=== PATIENT | female | born 1965 | race Caucasian/White ===

== ENCOUNTER → 2016-06-25 | Outpatient (CLI) | payer BC ==
--- NOTE | 2016-06-25 15:30 | MR ---
EXAMINATION TYPE: MR cervical spine wo con DATE OF EXAM: 06/25/2016 3:21 PM COMPARISON: NONE HISTORY: Neck pain TECHNIQUE: Multiplanar, multisequence images of the cervical spine were acquired. C2-C3: No evidence for degenerative disc disease. No disc bulge/herniation or protrusion. No Canal stenosis. Foramina are patent bilaterally. C3-C4: No evidence for degenerative disc disease. No disc bulge/herniation or protrusion. No Canal stenosis. Foramina are patent bilaterally. C4-C5: Mild uncovertebral joint hypertrophy in the left. No disc bulge/herniation or protrusion. No Canal stenosis. Foramina are patent bilaterally. C5-C6: Mild bilateral uncovertebral joint hypertrophy. Broad-based central and left paracentral disc bulge or small protrusion. Mild facet arthropathy in the left seen with mild left-sided foraminal enc roachment. Mild degenerative disc disease. C6-C7: Mild degenerative disc disease. No disc bulge/herniation or protrusion. No Canal stenosis. Foramina are patent bilaterally. C7-T1: No evidence for degenerative disc disease. No disc bulge/herniation or protrusion. No Canal stenosis. Foramina are patent bilaterally. Cervical segments are intact. There is normal alignment. Cervical spinal cord is of normal signal. Craniovertebral junction relationships are within normal limits. IMPRESSION: 1. Broad-based central and left paracentral disc bulging or small protrusion C5-C6 with mild left-nunu ed foraminal encroachment. 2. There is a slight scoliotic curvature of the cervical thoracic spine.
== END | disposition home or self-care (01) ==
LOC: RADMRIMAIN 14:09
PROVIDERS: ATTEND Orthopaedic Surgery
DX: M50.222 Other cervical disc displacement at C5-C6 level (principal); M41.9 Scoliosis, unspecified
CPT/HCPCS: 72141

== ENCOUNTER → 2016-06-25 | Outpatient (CLI) | payer BC ==
--- NOTE | 2016-06-26 09:55 | MM ---
Reason for exam: screening (asymptomatic). Last mammogram was performed 1 year ago. History: Patient is postmenopausal and is nulliparous. Family history of premenopausal breast cancer in paternal grandmother at age 40. Benign core biopsy of the left breast, 1995. Benign excisional biopsy of the left breast, 1995. Taking estrogen for 6 years beginning at age 43. Physical Findings: A clinical breast exam by your physician is recommended on an annual basis and results should be correlated with mammographic findings. MG Screening Mammo w CAD Bilateral CC and MLO view(s) were taken. Prior study comparison: June 11, 2015, bilateral MG 3d diag mammo w/cad [facility]. December 18, 2014, left breast MG diagnostic mammo LT w CAD. The breast tissue is heterogeneously dense. This may lower the sensitivity of mammography. Finding #1: There is a 10 mm mass in the outer quadrant, posterior, central position of the left breast. Finding #2: There are typically benign calcifications in the right breast. ASSESSMENT: Incomplete: need additional imaging evaluation, BI-RAD 0 RECOMMENDATION: Special view mammogram and ultrasound of the left breast. [facility] will attempt to contact patient to return for supplemental views and ultrasound.
== END | disposition home or self-care (01) ==
LOC: RADMAMWWP 13:46
PROVIDERS: ATTEND Obstetrics & Gynecology
DX: Z12.31 Encounter for screening mammogram for malignant neoplasm of breast (principal)

== ENCOUNTER → 2016-07-02 | Outpatient (CLI) | payer BC ==
--- NOTE | 2016-07-02 09:57 | MM ---
Reason for exam: additional evaluation requested from abnormal screening. Last mammogram was performed less than 1 month ago. History: Patient is postmenopausal and is nulliparous. Family history of premenopausal breast cancer in paternal grandmother at age 40. Benign core biopsy of the left breast, 1995. Benign excisional biopsy of the left breast, 1995. Taking estrogen for 6 years beginning at age 43. Physical Findings: Nurse Summary: 1cm nodule in the left breast at 12 o'clock (nurse kp). MG Work Up Mamm w CAD LT CC and MLO view(s) were taken of the left breast. Prior study comparison: June 25, 2016, bilateral MG screening mammo w CAD. June 11, 2015, bilateral MG 3d diag mammo w/cad [facility]. December 18, 2014, left breast MG diagnostic mammo LT w CAD. June 05, 2013, bilateral digital screening mammo w/CAD. May 12, 2012, bilateral digital screening mammo w/CAD. The breast tissue is heterogeneously dense. This may lower the sensitivity of mammography. A 1.1cm circumscribed mostly circumscribed mass seems to drop slightly on the true lateral suggesting lateral position in the lower outer quadrant. These results were verbally communicated with the patient and result sheet given to the patient on 07/02/16. ASSESSMENT: Incomplete: need additional imaging evaluation, BI-RAD 0 RECOMMENDATION: Ultrasound of the left breast.
--- NOTE | 2016-07-02 09:59 | USB ---
Reason for exam: additional evaluation requested from abnormal screening. History: Patient is postmenopausal and is nulliparous. Family history of premenopausal breast cancer in paternal grandmother at age 40. Benign core biopsy of the left breast, 1995. Benign excisional biopsy of the left breast, 1995. Taking estrogen for 6 years beginning at age 43. US Breast Workup LT Left breast ultrasound including all four quadrants, the retroareolar region and axilla demonstrates a 0.86 x 0.32 x 0.41cm mixed lesion at 12 o'clock, a 0.47 x 0.41 x 0.53cm cystic lesion at 3 o'clock, a 0.86 x 0.46 x 0.92cm cystic lesion at 4 o'clock, this may correspond to the mammographic finding for which a 6 month follow up is recommended and a 1.18 x 0.36 x 0.88cm mixed lesion at 11 o'clock. These results were verbally communicated with the patient and result sheet given to the patient on 07/02/16. ASSESSMENT: Probably benign, BI-RAD 3 RECOMMENDATION: Follow-up diagnostic mammogram of the left breast in 6 months.
== END | disposition home or self-care (01) ==
LOC: RADMAMWWP 08:13
PROVIDERS: ATTEND Obstetrics & Gynecology
DX: R92.8 Other abnormal and inconclusive findings on diagnostic imaging of breast (principal)
CPT/HCPCS: 76641; G0206

== ENCOUNTER → 2017-01-04 | Outpatient (CLI) | payer BC ==
--- NOTE | 2017-01-04 11:17 | MM ---
Reason for exam: follow-up at short interval from prior study. Last mammogram was performed 6 months ago. History: Patient is postmenopausal and is nulliparous. Family history of premenopausal breast cancer in paternal grandmother at age 40. Benign core biopsy of the left breast, 1995. Benign excisional biopsy of the left breast, 1995. Taking estrogen for 6 years beginning at age 43. Physical Findings: Nurse did not find any significant physical abnormalities on exam. MG Diagnostic Mammo LT w CAD CC and MLO view(s) were taken of the left breast. Prior study comparison: July 02, 2016, left breast MG work up mamm w CAD LT. June 25, 2016, bilateral MG screening mammo w CAD. The breast tissue is heterogeneously dense. This may lower the sensitivity of mammography. Finding: There are typically benign calcifications in the left breast. No significant changes in finding since July 02, 2016 and June 25, 2016. These results were verbally communicated with the patient and result sheet given to the patient on 01/04/17. ASSESSMENT: Benign, BI-RAD 2 RECOMMENDATION: Return to routine screening mammogram schedule for both breasts. Back on schedule.
== END | disposition home or self-care (01) ==
LOC: RADMAMWWP 07:36
PROVIDERS: ATTEND Obstetrics & Gynecology
DX: R92.8 Other abnormal and inconclusive findings on diagnostic imaging of breast (principal)

== ENCOUNTER → 2017-10-12 | Outpatient (CLI) | payer BC ==
--- NOTE | 2017-10-13 11:13 | MM ---
Reason for exam: screening (asymptomatic). Last mammogram was performed 9 months ago. History: Patient is postmenopausal and is nulliparous. Family history of premenopausal breast cancer in paternal grandmother at age 40. Benign core biopsy of the left breast, 1995. Benign excisional biopsy of the left breast, 1995. Taking estrogen for 6 years beginning at age 43. Physical Findings: A clinical breast exam by your physician is recommended on an annual basis and results should be correlated with mammographic findings. MG 3D Screening Mammo W/Cad Bilateral CC and MLO view(s) were taken. Prior study comparison: January 04, 2017, left breast MG diagnostic mammo LT w CAD. July 02, 2016, left breast MG work up mamm w CAD LT. The breast tissue is heterogeneously dense. This may lower the sensitivity of mammography. Finding: There are typically benign round calcifications in both breasts. There is no discrete abnormality. ASSESSMENT: Benign, BI-RAD 2 RECOMMENDATION: Routine screening mammogram of both breasts in 1 year.
== END ==
LOC: RADMAMWWP 09:08
PROVIDERS: ATTEND Obstetrics & Gynecology
DX: Z12.31 Encounter for screening mammogram for malignant neoplasm of breast (principal)
CPT/HCPCS: 77063; 77067

== ENCOUNTER → 2018-10-20 | Outpatient (CLI) | payer BC ==
--- NOTE | 2018-10-21 08:52 | MM ---
Reason for exam: screening (asymptomatic). Last mammogram was performed 1 year ago. History: Patient is postmenopausal and is nulliparous. Family history of premenopausal breast cancer in paternal grandmother at age 40. Benign core biopsy of the left breast, 1995. Benign excisional biopsy of the left breast, 1995. Took estrogen for 7 years beginning at age 43. Physical Findings: A clinical breast exam by your physician is recommended on an annual basis and results should be correlated with mammographic findings. MG 3D Screening Mammo W/Cad Bilateral CC and MLO view(s) were taken. Prior study comparison: October 12, 2017, bilateral MG 3d screening mammo w/cad. January 04, 2017, left breast MG diagnostic mammo LT w CAD. The breast tissue is heterogeneously dense. This may lower the sensitivity of mammography. There is no discrete abnormality. No significant changes when compared with prior studies. ASSESSMENT: Negative, BI-RAD 1 RECOMMENDATION: Routine screening mammogram of both breasts in 1 year.
== END | disposition home or self-care (01) ==
LOC: RADMAMWWP 11:40
PROVIDERS: ATTEND Obstetrics & Gynecology
DX: Z12.31 Encounter for screening mammogram for malignant neoplasm of breast (principal)
CPT/HCPCS: 77063; 77067

== ENCOUNTER → 2019-12-29 | Outpatient (CLI) | payer BC ==
--- NOTE | 2020-01-01 09:21 | MM ---
Reason for exam: screening (asymptomatic). Last mammogram was performed 1 year and 2 months ago. History: Patient is postmenopausal and is nulliparous. Family history of premenopausal breast cancer in paternal grandmother at age 40. Benign core biopsy of the left breast, 1995. Benign excisional biopsy of the left breast, 1995. Took estrogen for 7 years beginning at age 43. Physical Findings: A clinical breast exam by your physician is recommended on an annual basis and results should be correlated with mammographic findings. MG 3D Screening Mammo W/Cad Bilateral CC and MLO view(s) were taken. Prior study comparison: October 20, 2018, bilateral MG 3d screening mammo w/cad. October 12, 2017, bilateral MG 3d screening mammo w/cad. The breast tissue is heterogeneously dense. This may lower the sensitivity of mammography. There are benign appearing round calcifications in the right breast. There is no discrete abnormality. ASSESSMENT: Benign, BI-RAD 2 RECOMMENDATION: Routine screening mammogram of both breasts in 1 year.
== END | disposition home or self-care (01) ==
LOC: RADMAMWWP 09:35
PROVIDERS: ATTEND Obstetrics & Gynecology
DX: Z12.31 Encounter for screening mammogram for malignant neoplasm of breast (principal)
CPT/HCPCS: 77063; 77067

== ENCOUNTER → 2021-01-24 | Outpatient (CLI) | payer BC ==
--- NOTE | 2021-01-27 09:40 | MM ---
Reason for exam: screening (asymptomatic). Last mammogram was performed 1 year and 1 month ago. History: Patient is postmenopausal and is nulliparous. Family history of premenopausal breast cancer in paternal grandmother at age 40. Benign core biopsy of the left breast, 1995. Benign excisional biopsy of the left breast, 1995. Took estrogen for 7 years beginning at age 43. Physical Findings: A clinical breast exam by your physician is recommended on an annual basis and results should be correlated with mammographic findings. MG 3D Screening Mammo W/Cad Bilateral CC and MLO view(s) were taken. Prior study comparison: December 29, 2019, bilateral MG 3d screening mammo w/cad. October 20, 2018, bilateral MG 3d screening mammo w/cad. The breast tissue is heterogeneously dense. This may lower the sensitivity of mammography. There is no discrete abnormality. No significant changes when compared with prior studies. ASSESSMENT: Benign, BI-RAD 2 RECOMMENDATION: Routine screening mammogram of both breasts in 1 year.
== END | disposition home or self-care (01) ==
LOC: RADMAMWWP 12:33
PROVIDERS: ATTEND Obstetrics & Gynecology
DX: Z12.31 Encounter for screening mammogram for malignant neoplasm of breast (principal); Z78.0 Asymptomatic menopausal state; Z79.818 Long term (current) use of other agents affecting estrogen receptors and estrogen levels; Z80.3 Family history of malignant neoplasm of breast
CPT/HCPCS: 77063; 77067

== ENCOUNTER → 2022-02-27 | Outpatient (CLI) | payer BC ==
--- NOTE | 2022-03-02 10:20 | MM ---
Reason for Exam: Screening (asymptomatic). Last mammogram was performed 1 year(s) and 1 month(s) ago. Patient History: Menarche at age 16. Patient has no children. Left ovary removed at age 43. Right ovary removed at age 43. Hysterectomy at age 43. Postmenopausal. Estrogen for 7 years from age 43 until age 50. 1995, Benign Core Biopsy on the left side. 1995, Benign Excisional Biopsy on the left side. Paternal grandmother had breast cancer, age 40. Risk Values: Savita 5 year model risk: 1.9%. NCI Lifetime model risk: 12.0%. Prior Study Comparison: 10/20/2018 Bilateral Screening Mammogram, [facility]. 12/29/2019 Bilateral Screening Mammogram, [facility]. 01/24/2021 Bilateral Screening Mammogram, [facility]. Tissue Density: The breast tissue is heterogeneously dense. This may lower the sensitivity of mammography. Findings: Analyzed By CAD. Benign-appearing bilateral axillary lymph nodes redemonstrated. There is occasional scattered benign-appearing tiny round calcification throughout the bilateral breasts. There is no suspicious group of microcalcifications or new suspicious mass in either breast. Overall Assessment: Benign, BI-RAD 2 Management: Screening Mammogram of both breasts in 1 year. A clinical breast exam by your physician is recommended on an annual basis and results should be correlated with mammographic findings. Electronically signed and approved by: Robin Oliva M.D.
== END | disposition home or self-care (01) ==
LOC: RADMAMWWP 14:38
PROVIDERS: ATTEND Obstetrics & Gynecology
DX: Z12.31 Encounter for screening mammogram for malignant neoplasm of breast (principal); Z80.3 Family history of malignant neoplasm of breast; Z78.0 Asymptomatic menopausal state
CPT/HCPCS: 77063; 77067

== ENCOUNTER → 2023-03-10 | Outpatient (CLI) | payer BC ==
--- NOTE | 2023-03-11 11:00 | MM ---
Reason for Exam: Screening (asymptomatic). Last mammogram was performed 1 year(s) and 1 month(s) ago. Patient History: Menarche at age 16. Patient has no children. Left ovary removed at age 43. Right ovary removed at age 43. Hysterectomy at age 43. Postmenopausal. Estrogen for 7 years from age 43 until age 50. 1995, Benign Core Biopsy on the left side. 1995, Benign Excisional Biopsy on the left side. Paternal grandmother had breast cancer, age 40. Risk Values: Savita 5 year model risk: 2.0%. NCI Lifetime model risk: 11.7%. Prior Study Comparison: 12/29/2019 Bilateral Screening Mammogram, [facility]. 01/24/2021 Bilateral Screening Mammogram, [facility]. 02/27/2022 Bilateral MG 3D screening mammo w/cad, [facility]. Tissue Density: The breast tissue is heterogeneously dense. This may lower the sensitivity of mammography. Findings: Analyzed By CAD. There is no suspicious group of microcalcifications or new suspicious mass in either breast. Overall Assessment: Benign, BI-RAD 2 Management: Screening Mammogram of both breasts in 1 year. . Patient should continue monthly self-breast exams. A clinical breast exam by your physician is recommended on an annual basis. This exam should not preclude additional follow-up of suspicious palpable abnormalities. Note on Savita scores and lifetime risk: 1. A Savita score greater than 3% is considered moderate risk. If this is the case, consider specialist referral to assess eligibility for a risk reducing agent. 2. If overall lifetime risk for the development of breast cancer is 20% or higher, the patient may qualify for future screening with alternating mammogram and breast MRI. Electronically signed and approved by: Ilya Godinez M.D. Radiologis
== END | disposition home or self-care (01) ==
LOC: RADMAMWWP 10:14
PROVIDERS: ATTEND Obstetrics & Gynecology
DX: Z12.31 Encounter for screening mammogram for malignant neoplasm of breast (principal); Z78.0 Asymptomatic menopausal state; Z80.3 Family history of malignant neoplasm of breast
CPT/HCPCS: 77063; 77067

== ENCOUNTER → 2024-03-14 | Outpatient (CLI) | payer BC ==
--- NOTE | 2024-03-16 07:51 | MM ---
Reason for Exam: Screening (asymptomatic). Last screening mammogram was performed 12 month(s) ago. Patient History: Menarche at age 16. Patient has no children. Left ovary removed at age 43. Right ovary removed at age 43. Hysterectomy at age 43. Postmenopausal. Estrogen for 7 years from age 43 until age 50. 1995, Benign Core Biopsy on the left side. 1995, Benign Excisional Biopsy on the left side. Paternal grandmother had breast cancer, age 40. Risk Values: Savita 5 year model risk: 2.0%. NCI Lifetime model risk: 11.5%. Prior Study Comparison: 01/24/2021 Bilateral Screening Mammogram, [facility]. 02/27/2022 Bilateral MG 3D screening mammo w/cad, [facility]. 03/10/2023 Bilateral MG 3D screening mammo w/cad, [facility]. Tissue Density: The breasts are heterogeneously dense, which may obscure small masses. Findings: Analyzed By CAD. Right breast: There is no suspicious group of microcalcifications or new suspicious mass. Left breast: There is no suspicious group of microcalcifications or new suspicious mass. Overall Assessment: Negative, BI-RAD 1 Management: Screening Mammogram of both breasts in [address] [facility] will attempt to contact patient to return for supplemental views and ultrasound if indicated. Patient should continue monthly self-breast exams. A clinical breast exam by your physician is recommended on an annual basis. This exam should not preclude additional follow-up of suspicious palpable abnormalities. Note on Savita scores and lifetime risk: 1. A Savita score greater than 3% is considered moderate risk. If this is the case, consider specialist referral to assess eligibility for a risk reducing agent. 2. If overall lifetime risk for the development of breast cancer is 20% or higher, the patient may qualify for future screening with alternating mammogram and breast MRI. [facility], , 03/16/2024 7:48 AM. Electronically signed and approved by: Deon Almanzar DO
== END | disposition home or self-care (01) ==
LOC: RADMAMWWP 11:00
PROVIDERS: ATTEND Obstetrics & Gynecology
CPT/HCPCS: 77063; 77067

== ENCOUNTER → 2024-03-29 | Outpatient (CLI) | payer BC ==
--- NOTE | 2024-03-29 11:07 | CT ---
EXAMINATION TYPE: CT soft tissue neck w con CT DLP: 356.7 mGycm, Automated exposure control for dose reduction was used. DATE OF EXAM: 03/29/2024 10:56 AM COMPARISON: MR cervical spine 06/25/2016. CLINICAL INDICATION:Female, 58 years old with history of R22.1 LOCALIZED SWELLING, MASS AND LUMP, NEC K; PHH, left sided neck/shoulder swelling TECHNIQUE: Standard enhanced CT of the neck following intravenous administration of 100 cc of Isovue 300. Axial sections with coronal and sagittal reformats were obtained. FINDINGS: Brain: Visualized portions are grossly unremarkable. Orbits: Unremarkable Sinuses: Grossly unremarkable. Suprahyoid Neck: The oropharynx, oral cavity, parapharyngeal and retropharyngeal spaces are clear and symmetric. The nasopharynx is unremarkable. Infrahyoid Neck: The larynx, hypopharynx, and supraglottic area are clear and symmetric. Parotid Glands: Unremarkable. Submandibular Glands: Unremarkable. Musculoskeletal: No acute osseous pathology. Lymph nodes: No enlarged lymph nodes greater than 1 cm in short axis.. Vascular structures: Visualized major arteries are patent without evidence of aneurysm. Thoracic Inlet/airway: Airway is patent. Biapical pleural parenchymal scarring with some calcificatio n. Soft tissues/Thyroid: Thyroid and remainder of the soft tissues are unremarkable. Other: none. IMPRESSION No definite evidence for significant abnormality. [facility], , 03/29/2024 11:05 AM
== END | disposition home or self-care (01) ==
LOC: RADCTMAIN 10:19
PROVIDERS: ATTEND Family Medicine
DX: R22.1 Localized swelling, mass and lump, neck (principal)
CPT/HCPCS: 70491

== ENCOUNTER → 2024-05-18 | Outpatient (CLI) | payer BC ==
--- NOTE | 2024-05-18 14:19 | USB ---
Reason for Exam: Clinical finding. Patient History: Menarche at age 16. Patient has no children. Left ovary removed at age 43. Right ovary removed at age 43. Hysterectomy at age 43. Postmenopausal. Estrogen for 7 years from age 43 until age 50. 1995, Benign Core Biopsy on the left side. 1995, Benign Excisional Biopsy on the left side. Paternal grandmother had breast cancer, age 40. Risk Values: Savita 5 year model risk: 2.1%. NCI Lifetime model risk: 11.2%. Technique: Method: Whole Breast Handheld. Prior Study Comparison: 02/27/2022 Bilateral MG 3D screening mammo w/cad, [facility]. 03/10/2023 Bilateral MG 3D screening mammo w/cad, [facility]. 03/14/2024 Bilateral MG 3D screening mammo w/cad, [facility]. Findings: The whole breast of both breasts, the axilla of both breasts and the retroareolar of both breasts were scanned. Ultrasound of the right breast at the 10:00 position 2 cm from the nipple demonstrates a 3 mm simple cyst. Ultrasound of the left breast reveals no evidence for solid or cystic mass. Overall Assessment: Benign, BI-RAD 2 Management: Screening Mammogram of both breasts in 10 months. A clinical breast exam by your physician is recommended on an annual basis and results should be correlated with mammographic findings. This exam should not preclude additional follow-up of suspicious palpable abnormalities. Results were given to the patient verbally at the time of exam. [facility], , 05/18/2024 2:15 PM. Electronically signed and approved by: Ilya Godinez M.D. Radiologis
== END | disposition home or self-care (01) ==
LOC: RADUSWWP 09:20
PROVIDERS: ATTEND Obstetrics & Gynecology
DX: R92.333 Mammographic heterogeneous density, bilateral breasts (principal); Z90.722 Acquired absence of ovaries, bilateral; Z78.0 Asymptomatic menopausal state; Z80.3 Family history of malignant neoplasm of breast